=== PATIENT | male | born 1965 | race Caucasian/White ===

== ENCOUNTER → 2017-04-16 | Outpatient (CLI) | payer BC ==
[~2017-04-16] VITALS: Ht 167.6 cm; Wt 72.6 kg
[~2017-04-16] MED LIST: PREVACID30 MG PO; VICODIN,LORT1 TABLET PO
== END | disposition home or self-care (01) ==
LOC: AMB 08:41
DX: Z12.11 Encounter for screening for malignant neoplasm of colon (principal); K21.9 Gastro-esophageal reflux disease without esophagitis; K22.10 Ulcer of esophagus without bleeding; K44.9 Diaphragmatic hernia without obstruction or gangrene; D12.5 Benign neoplasm of sigmoid colon; D12.4 Benign neoplasm of descending colon; D12.3 Benign neoplasm of transverse colon; K64.8 Other hemorrhoids; R12 Heartburn; R13.10 Dysphagia, unspecified; Z87.891 Personal history of nicotine dependence; K59.00 Constipation, unspecified; R73.03 Prediabetes; M51.26 Other intervertebral disc displacement, lumbar region; J30.9 Allergic rhinitis, unspecified; K76.0 Fatty (change of) liver, not elsewhere classified; Z88.7 Allergy status to serum and vaccine; Z88.5 Allergy status to narcotic agent; Z88.8 Allergy status to other drugs, medicaments and biological substances; Z82.49 Family history of ischemic heart disease and other diseases of the circulatory system
CPT/HCPCS: 88305; J2250; J3010